=== PATIENT | female | born 1985 | race Caucasian/White ===

== ENCOUNTER 2018-12-19 13:15 | Emergency (ER) | payer OTHER ==
[~2018-12-19] VITALS: Ht 160 cm; Wt 45.4 kg
[2018-12-19 13:48] LABS: URINE BILIRUBIN NEGATIVE (Negative); URINE BLOOD 3+ (Negative); URINE CLARITY CLOUDY; URINE COLOR YELLOW; URINE GLUCOSE-RANDOM* NEGATIVE (Negative); URINE KETONES 3+ (Negative); URINE LEUKOCYTES TRACE (Negative); URINE NITRITE NEGATIVE (Negative); URINE PROTEIN (DIPSTICK) TRACE (Negative); URINE SPECIFIC GRAVITY >= 1.030 (1.005-1.035); URINE UROBILINOGEN 0.2 E.U./dl (0.2-1.0)
[2018-12-19 13:53] LABS: URINE REDUCING SUBSTANCE NEGATIVE
[2018-12-19 13:58] LABS: CALCIUM 9.7 mg/dL (8.5-10.1); CREATININE 0.7 mg/dL (0.6-1.0); HEMATOCRIT 41.9 % (37.0-47.0); HEMOGLOBIN 14.1 gm/dL (12.0-15.0); MCH 31.1 pg (26.0-34.0); MCHC 33.7 g/dL (28.0-37.0); MCV 92.1 fL (80.0-100.0); PLATELET COUNT 292 thou/uL (150-400); POTASSIUM 3.7 mmol/L (3.5-5.1); RBC 4.55 mil/uL (4.20-5.00); RDW 13.2 % (10.5-14.5); WBC 21.3 thou/uL (4.0-11.0)
[2018-12-19 14:04] LABS: ALBUMIN 4.8 g/dL (3.4-5.0); TOTAL BILIRUBIN 1.7 mg/dL (<0.1-1.0); TOTAL PROTEIN 8.5 g/dL (6.4-8.2)
[2018-12-19 14:05] LABS: SQUAMOUS >10 Many /LPF (0-3)
[2018-12-19 14:06] LABS: URINE RBC 3-10 Few /HPF (0-2)
[2018-12-19 14:07] LABS: CASTS None Seen /LPF (None Seen); CRYSTALS None Seen /LPF (None Seen); URINE WBC 0-5 Rare /HPF (0-5)
[2018-12-19 14:21] LABS: ABSOLUTE NEUTROPHILS 19.2 thou/uL (1.4-8.2)
[2018-12-19] MEDS ORDERED: CELEXA20 MG PO (15:01)
[2018-12-19] MEDS ORDERED: DUPIXENT300 MG/2 M SUBQ (15:01)
[2018-12-19] MEDS ORDERED: PRENATAL (15:01)
[2018-12-19] MEDS ORDERED: ACCUNEB SO1.25 MG/1 INH (15:02)
[2018-12-19] MEDS ORDERED: NORCO 5-325 TA1 EAC1 PO (16:32)
[2018-12-19] MEDS ORDERED: ONDANSETRON HCL4 M2 PO (16:32)
[2018-12-19 17:28] VITALS: BP 131/62
== END 2018-12-19 17:30 | disposition home or self-care (01) ==
LOC: ER 13:15
PROVIDERS: Physician Assistant
DX: D72.829 Elevated white blood cell count, unspecified (principal); N83.201 Unspecified ovarian cyst, right side; R11.2 Nausea with vomiting, unspecified; F32.9 Major depressive disorder, single episode, unspecified